=== PATIENT | male | born 1945 | race Caucasian/White ===

== ENCOUNTER → 2017-08-31 | Outpatient (REF) | payer MEDICARE, BC ==
[~2017-08-31] MED LIST: AMOX-362 PO; FAMO20TA28 PO; HYDR-6016 PO; HYDR12.556 PO; IBUP800T37 PO; LEVO-85 PO; LISI20TA29 PO; PRAV20TA66 PO; TAMS0.4C25 PO
== END ==
LOC: ZZSTITCHES 17:14
PROVIDERS: ATTEND Physician Assistant
DX: R97.20 Elevated prostate specific antigen [PSA] (principal)
CPT/HCPCS: 84154

== ENCOUNTER → 2017-12-18 | Outpatient (REF) | payer MEDICARE, BC | LOC: ZZSTITCHES 10:10 | PROVIDERS: ATTEND Physician Assistant | DX: R97.20 Elevated prostate specific antigen [PSA] (principal) | CPT/HCPCS: 84153 ==

== ENCOUNTER 2018-06-25 00:44 | Day surgery (SDC) | payer MEDICARE, BC ==
[2018-06-21 09:09] LABS: PLATELET COUNT, AUTOMATED 374 K/uL (150-450)
--- NOTE | 2018-06-21 09:21 | EKG ---
FACILITY: [facility] PATIENT NAME: RYAN LIND : [id number] MR: [id number] V: [id number] EXAM DATE: ORDERING PHYSICIAN: DENAE FINNEGAN TECHNOLOGIST: Test Reason : Pre-op Blood Pressure : / mmHG Vent. Rate : 079 BPM Atrial Rate : 079 BPM P-R Int : 136 ms QRS Dur : 098 ms QT Int : 370 ms P-R-T Axes : 059 049 055 degrees QTc Int : 424 ms Normal sinus rhythm Normal ECG When compared with ECG of 21-AUG-2015 10:50, No significant change was found Confirmed by VIVI HILL ([id number]) on 06/21/2018 12:28:07 PM Referred By: Confirmed By:VIVI HILL
[~2018-06-25] VITALS: Ht 170.2 cm; Wt 69.9 kg
[~2018-06-25 00:44] MED LIST changes: +AMLO-111 PO
[2018-06-25] MEDS ORDERED: LIDOCAINE/SOD BICARB 8.4% SYR ID ONE (06:00)
[2018-06-25] MEDS ORDERED: MIDAZOLAM 2 MG/2 ML VIAL IVP PRN (06:00)
[2018-06-25] MEDS ORDERED: NORMOSOL R SOLN(*) 1000 ML BAG 1,000 ML IV PRN (06:00)
[2018-06-25] MEDS ORDERED: FAMOTIDINE 20 MG TAB PO ONE (06:00)
[2018-06-25] MEDS ORDERED: cefTRIAXone(*) 1 GM VIAL 1 GM in NS(*) 0.9% 100 ML ADDVANT BAG 100 ML IVPB ONE (06:30)
[2018-06-25] MEDS ORDERED: GENTAMICIN(*) 80 MG/2 ML VIAL 160 MG in NS(*) 0.9% 100 ML BAG 100 ML IVPB ONE (06:30)
[2018-06-25 06:42] VITALS: BP 124/81
[2018-06-25] MEDS ORDERED: fentaNYL CITR 100 MCG/2 ML AMP ONE (07:05)
[2018-06-25] MEDS ORDERED: LIDOCAINE 2% IV 100 MG/5ML SYR ONE (07:06)
[2018-06-25] MEDS ORDERED: PROPOFOL EMUL(*) 10MG/ML 20 ML 20 ML ONE (07:07)
[2018-06-25] MEDS ORDERED: DEXAMETHASONE SOD 4 MG/ML VIAL ONE (07:37)
[2018-06-25] MEDS ORDERED: ONDANSETRON 4 MG/2 ML VIAL ONE (07:38)
--- NOTE | 2018-06-25 08:52 | RADIOLOGY IMAGING REPORT ---
FACILITY: [facility] PATIENT NAME: Jean Eng : 1945 MR: [id number] V: [id number] EXAM DATE: ORDERING PHYSICIAN: ISAURO SCHULTZ TECHNOLOGIST: Location: [facility] - [place] Patient: Jean Eng : 1945 Visit/Account:[id number] Date of Sevice: 06/25/2018 PROSTATE BIOPSY Findings: Ultrasound was utilized for ultrasound-guided prostate biopsy performed by Dr. Schultz. Mult iple images available some of which visualize the needle utilized for biopsy. See the performing cli nician report for full details. IMPRESSION: Ultrasound-guided prostate biopsy, see performing clinician report for full details. Report Dictated By: Jose Zelaya MD at 06/25/2018 8:45 AM Report E-Signed By: Jose Zelaya MD at 06/25/2018 8:48 AM WSN:[email or web address]
[2018-06-25] MEDS ORDERED: ACET-3017 PO (09:07)
[2018-06-25] MEDS ORDERED: IBUP800T37 PO (09:08)
[2018-06-25] MEDS ORDERED: PHEN200T32 PO (09:09)
[2018-06-25] MEDS ORDERED: SULF-198 PO (09:09)
[2018-06-25] MEDS ORDERED: FAMO20TA28 PO (09:10)
[2018-06-25 09:22] VITALS: BP 92/73
[2018-06-25 09:50] VITALS: BP 108/64
[2018-06-25 10:07] VITALS: BP 122/77
[2018-06-25 10:10] VITALS: BP_SYST 111; BP_SYST 117; BP_DIAS 71
--- NOTE | 2018-06-25 12:25 | OPERATIVE REPORT 1 ---
EVENT DATE: June 25, 2018 SURGEON: Jerzy Hernandez MD ANESTHESIOLOGIST: Fox Anderson MD ANESTHESIA: General PREOPERATIVE DIAGNOSES 1. Elevated prostate-specific antigen. 2. Outlet obstruction of prostate gland. POSTOPERATIVE DIAGNOSES 1. Elevated prostate-specific antigen. 2. Outlet obstruction of prostate gland. PROCEDURE PERFORMED 1. Prostate ultrasound. 2. Transrectal biopsies. 3. Cystourethroscopy. 4. Evacuation of blood clots from the bladder. DESCRIPTION OF PROCEDURE Under general anesthetic, the patient was prepped in the extended lithotomy position. The prostate ultrasound probe was introduced. Scanning of the prostate showed scattered calculi and no hypoechoic areas. There is a cystic degeneration of the left lateral lobe primarily along the base and mid lateral area. Prostate measured to approximately 63 grams. Biopsies were obtained from the base, mid and apical areas of the prostate x2 in all areas for a total of 12 biopsies. Two extra biopsies were obtained from the right mid lateral area of the base of the prostate as well. At conclusion of the prostate ultrasound biopsies, digital examination revealed minimal blood in the rectal ampulla. The patient was prepped and draped. The 21-Panendoscope was admitted through the urethra and into the bladder. A few clots were evacuated. Findings showed 4+ trabeculation. The trigone ureteral orifices were normal. There was intravesicle extensive of the median lobe. There was minimal blood in the prostatic urethra. Verumontanum was normal. The clots were evacuated from the bladder. Irrigation was clear at conclusion of the procedure. The bladder was drained and scope was withdrawn. Patient tolerated the procedure satisfactorily and returned to the recovery room in satisfactory condition. This is a 72-year-old white male in followup for his abnormal filling prostate and his elevated prostate-specific antigen. His most recent PSA was 8.2 in April 2018. He has had PSA's in the 7+ range since 2016. Options were discussed with the patient. He was agreeable to reevaluation. That has been accomplished. See operative note for details. Patient will be ready for discharge home when alert and functional. Force fluids, 2L per day. Activities are as tolerated. He is to continue his usual medications. A copy of instructions was given to the patient. Patient was discharged home on Bactrim, Pepcid, Pyridium, Motrin and [place] therapy. Plan followup this coming Monday in the office. He is to call for an appointment. DAT
== END 2018-06-25 09:22 | disposition home or self-care (01) ==
LOC: OR 00:44
DX: R97.20 Elevated prostate specific antigen [PSA] (principal); N40.0 Benign prostatic hyperplasia without lower urinary tract symptoms; I10 Essential (primary) hypertension
CPT/HCPCS: 36415; 52001; 55700; 76942; 81001; 85025; 88305; 88344; 93005; A9270; J0696; J1100; J1580; J2001; J2405; J2704; J3010; J7050; 82310; 82374; 82435; 82565; 82947; 84132; 84295; 84520

== ENCOUNTER → 2018-07-19 | Outpatient (CLI) | payer MEDICARE, BC ==
[~2018-07-19] MED LIST changes: +ACET-3017 PO; +IOPAMIDOL 76% 100 ML INFUS BTL 100 ML ONE; +PHEN200T32 PO; +SULF-198 PO
--- NOTE | 2018-07-19 12:03 | RADIOLOGY IMAGING REPORT ---
FACILITY: [facility] PATIENT NAME: Jean Eng : 1945 MR: [id number] V: [id number] EXAM DATE: ORDERING PHYSICIAN: ISAURO SCHULTZ TECHNOLOGIST: [place] [facility] [place] : 1945 Visit/Account:[id number] Date of Sevice: 07/19/2018 ABDOMEN/PELVIS WITH CONTRAST HISTORY: Adenocarcinoma the prostate TECHNIQUE: Following administration of IV contrast contiguous axial images acquired through the abdom en/pelvis. Coronal and sagittal reformatting also performed.Dose Lowering Technique One of the following dose optimization techniques was utilized in the performance of this exam: Autom ated exposure control; adjustment of the mA and/or kV according to the patient's size; or use of an i terative reconstruction technique. Specific details can be referenced in the facility's radiology C T exam operational policy. CONTRAST: 75 mL Isovue-370 COMPARISON: None. FINDINGS: Visualized lung bases: There is mild pleural thickening along the medial inferior aspect of the righ t middle lobe Hepatobiliary: Negative. Spleen: Negative. Adrenals: Negative. Pancreas: Negative. Kidneys ureters or bladder: Kidneys appear unremarkable. Bladder is very distended to approximately 4 cm proximal to the umbilicus. The inferior right corner of the bladder extends into a right inguin al hernia Genitalia: Prostate gland is enlarged heterogeneous and impinges upon the floor the bladder. The se nga vesicles appear mildly inhomogeneous GI: There is a small hiatal hernia. There is diverticulosis left-sided colon although no CT evidence of acute diverticulitis. The append ix is visualized and does not appear inflamed Vessels/spaces/nodes: There mild to moderate vascular calcifications in the abdominal aorta and bran ch vessels. There is a 1 x 0.7 cm lymph node adjacent to the GE junction. Bones/soft tissues: There are large bilateral inguinal hernias. The hernia on the left contains fat . The hernia on the right contains fat and a knuckle of inferior bladder. There is a small periumbi lical hernia containing fat. There are mild to moderate spondylotic changes of the visualized thorac olumbar spine. No aggressive appearing bone lesions are seen Additional findings: None pertinent. IMPRESSION: Bladder is distended as described above. Prostate gland is enlarged, heterogeneous and impinges upon the floor the bladder. The seminal vesic les also appear mildly inhomogeneous Bilateral inguinal hernias containing fat and a small medical bladder also extends into the right ing uinal hernia Small hiatal hernia Diverticulosis left-sided colon Report Dictated By: Sherrell Ken MD at 07/19/2018 10:43 AM Report E-Signed By: Sherrell Ken MD at 07/19/2018 11:59 AM WSN:[email or web address]
--- NOTE | 2018-07-19 15:46 | RADIOLOGY IMAGING REPORT ---
FACILITY: [facility] PATIENT NAME: Jean Eng : 1945 MR: [id number] V: [id number] EXAM DATE: ORDERING PHYSICIAN: ISAURO SCHULTZ TECHNOLOGIST: [place] [facility] [place] : 1945 Visit/Account:[id number] Date of Sevice: 07/19/2018 WHOLE BODY BONE SCAN HISTORY: Prostate cancer TECHNIQUE: 25.6 mCi technetium 99m HDP was injected intravenously. Delayed anterior and posterior wh ole body gamma camera images were obtained. Additional gamma camera images: Right left lateral skull COMPARISON: CT abdomen pelvis performed today FINDINGS: Bone radiotracer activity: There is scoliosis of the thoracic spine and several areas of isotope upt pollo seen in the visualized cervical thoracic and lumbar spine which are most likely degenerative in n ature . Increased isotope uptake is also seen along the right side of the maxilla therefore clinical corre lation needed. Mild degenerative type uptake is noted at the ankles the right knee in the shoulders Extraosseous radiotracer activity: Unremarkable. Renal and urinary collecting system activity: Unremarkable. IMPRESSION: Multifocal areas of uptake which appear degenerative in nature. Increased uptake along the right-sided the maxilla. Clinical correlation needed. This could be rela jackie to prior trauma or dental issues Report Dictated By: Sherrell Ken MD at 07/19/2018 3:38 PM Report E-Signed By: Sherrell Ken MD at 07/19/2018 3:41 PM WSN:[email or web address]
== END ==
LOC: CT 00:35
DX: C61 Malignant neoplasm of prostate (principal); K44.9 Diaphragmatic hernia without obstruction or gangrene; K40.20 Bilateral inguinal hernia, without obstruction or gangrene, not specified as recurrent; K57.30 Diverticulosis of large intestine without perforation or abscess without bleeding
CPT/HCPCS: 74177; 78306; A9503; Q9967

== ENCOUNTER → 2018-12-13 | Outpatient (REF) | payer MEDICARE, BC ==
[~2018-12-13] MED LIST changes: -AMLO-111 PO; +AMLO-125 PO; -IOPAMIDOL 76% 100 ML INFUS BTL 100 ML ONE
== END ==
LOC: ZZSENDIN 10:06
PROVIDERS: ATTEND Urology
DX: C61 Malignant neoplasm of prostate (principal)
CPT/HCPCS: 84153